=== PATIENT | male | born 1960 | race Caucasian/White ===

== ENCOUNTER 2018-11-11 08:34 | Day surgery (SDC) | payer BC ==
[~2018-11-11] VITALS: Ht 188 cm; Wt 109.0 kg
[~2018-11-11 08:34] MED LIST: AMLO10 PO; AMLO5 PO; ASPI81CH PO; ASPI81EC PO; CYCL10 PO; DILT120 PO; DOCU100 PO; HYDACE5325 PO; METO25ER PO; NEBI10 PO; NITR.4SL SL; ONDA4ODT SL; PANT40 PO; ROSU10TA PO; ROSU5 PO; SUCR1 PO; VERA120ERB PO; Zofran Odt4 MG SL
--- NOTE | 2018-11-11 10:36 | NUR ---
PT SITTING IN RECLINER WITH EYES CLOSED, BUT IS EASILY AWAKENED. RIGHT RADIAL TR BAND SITE SOFT WITH NO HEMATOMA AND NO PULSATILE BLEEDING. CALL LIGHT IN REACH. PT C/O HIS CHRONIC 2-3/10 CHEST PAIN AND SORENESS AT RIGHT TR BAND SITE. RIGHT WRIST BOARD IN PLACE.
--- NOTE | 2018-11-11 11:45 | NUR ---
PT EATING LUNCH.
--- NOTE | 2018-11-11 12:02 | NUR ---
DR. PELAYO HER TO DISCUSS RESULTS WITH PATIENT.
--- NOTE | 2018-11-11 12:13 | NUR ---
2 CC AIR REMOVED FROM TR BAND. NO BLEEDING AT SITE. ADDITIONAL 5 CC AIR REMOVED. NO BLEEDING.
--- NOTE | 2018-11-11 12:27 | NUR ---
REMAINDER OF AIR REMOVED. NO BLEEDING AT SITE. TR BAND TO ROOM AIR.
--- NOTE | 2018-11-11 13:13 | NUR ---
DISCHARGE INSTRUCTIONS REVIEWED ALL QUESTIONS ANSWERED. DEFLATED RIGHT TR BAND REMOVED AND POLYMEM PLACED OVER SITE WITH WRIST BOARD IN PLACE. RIGHT RADIAL SITE SOFT WITH NO HEMATOMA AND NO PULSATILE BLEEDING. 20 G IV REMOVED FROM LEFT HAND WITH INTACT CANNULA. PT DRESSED AND ESCORTED OUT VIA WHEELCHAIR ESCORT.
== END 2018-11-11 13:15 | disposition home or self-care (01) ==
LOC: MHTC 08:34
DX: I20.0 Unstable angina (principal); R94.39 Abnormal result of other cardiovascular function study; Z88.2 Allergy status to sulfonamides; Z79.899 Other long term (current) drug therapy
CPT/HCPCS: 93458; 99152; C1769; C1894; J1644; J2250; J3010; J7030; Q9967

== ENCOUNTER 2019-07-06 08:33 | Day surgery (SDC) | payer BC ==
[~2019-07-06] VITALS: Ht 188 cm; Wt 107.1 kg
[~2019-07-06 08:33] MED LIST changes: +RANO500T PO
[2019-07-06] MEDS ORDERED: DUTOPROL 25-121 EACH (09:12)
== END 2019-07-06 11:00 | disposition home or self-care (01) ==
LOC: ORSCSDS 08:33
PROVIDERS: Internal Medicine Gastroenterology
PROC: 0DBL8ZX Excision of Transverse Colon, Via Natural or Artificial Opening Endoscopic, Diagnostic (ICD-10-PCS; principal; 2019-07-06 09:45)
DX: Z86.010 Personal history of colon polyps (principal); D12.3 Benign neoplasm of transverse colon; K64.8 Other hemorrhoids; E78.5 Hyperlipidemia, unspecified; Z79.899 Other long term (current) drug therapy
CPT/HCPCS: 88305; J2704; J7120

== ENCOUNTER 2020-07-10 12:35 | Emergency (ER) | payer BC ==
[~2020-07-10] VITALS: Ht 188 cm; Wt 108.9 kg
[~2020-07-10 12:35] MED LIST changes: +DUTOPROL 25-121 EACH
[2020-07-10 13:35] LABS: BASOPHILS ABSOLUTE AUTO 0.03 K/mm3 (0.00-0.23); BASOPHILS PERCENT AUTO 0 % (0-2); EOSINOPHILS ABSOLUTE AUTO 0.39 K/mm3 (0.00-0.68); EOSINOPHILS PERCENT AUTO 5 % (0-6); Hematocrit 51.4 % (37.0-53.0); Hemoglobin 17.6 g/dL (13.5-17.5); IMMATURE GRAN ABSOLUTE AUTO 0.04 K/mm3 (0.00-0.10); IMMATURE GRAN PERCENT AUTO 1 % (0-1); LYMPHOCYTES ABSOLUTE AUTO 2.18 K/mm3 (0.84-5.20); LYMPHOCYTES PERCENT AUTO 29 % (21-46); MONOCYTES ABSOLUTE AUTO 0.84 K/mm3 (0.16-1.47); MONOCYTES PERCENT AUTO 11 % (4-13); Mean Corpuscular HGB 30.9 pg (26.0-34.0); Mean Corpuscular HGB Conc 34.2 g/dL (31.5-36.5); Mean Corpuscular Volume 90 fL (80-100); NEUTROPHILS PERCENT AUTO 54 % (41-73); Platelet Count 179 K/mm3 (150-400); RDW Coefficient Variation 12.2 % (11.7-14.2); RDW Standard Deviation 39.8 fL (35.1-46.3); Red Blood Cell Count 5.69 M/mm3 (4.30-5.90); White Blood Cell Count 7.48 K/mm3 (4.00-11.30)
[2020-07-10 13:37] LABS: Alanine Aminotransfer (ALT/SGP 28 U/L (12-78); Albumin, Blood 4.3 g/dL (3.4-5.0); Albumin/Globulin Ratio 1.4 (0.8-1.8); Alk Phos 90 U/L (50-136); Anion Gap 3 mmol/L (6-16); Aspartate Aminotrans (AST/SGOT 25 U/L (12-37); Bilirubin, Total 0.6 mg/dL (0.1-1.0); Blood Urea Nitrogen 13 mg/dL (8-24); Bun/Creatinine Ratio 12.3 (12.0-20.0); CO2, Blood 31 mmol/L (21-32); Calcium, Blood 9.3 mg/dL (8.5-10.1); Chloride, Blood 108 mmol/L (98-108); Creatinine, Blood 1.06 mg/dL (0.60-1.20); Glomerular Filtration Rate >60 (60-); Glucose, Blood 88 mg/dL (70-99); Potassium, Blood 3.7 mmol/L (3.5-5.5); Sodium, Blood 142 mmol/L (136-145); Total Protein, Blood 7.3 g/dL (6.4-8.2)
== END 2020-07-10 15:28 | disposition home or self-care (01) ==
LOC: ER 12:35
PROVIDERS: Emergency Medicine
DX: M79.605 Pain in left leg (principal); Z79.899 Other long term (current) drug therapy; Z79.82 Long term (current) use of aspirin
CPT/HCPCS: 36415; 80053; 85025; 93005; 93010; 93971; 99284-25

== ENCOUNTER 2020-10-14 22:59 | Observation (INO) | payer BC ==
[~2020-10-14] VITALS: Ht 188 cm; Wt 106.7 kg
[~2020-10-14 22:59] MED LIST changes: +Crestor40 MG PO; -ROSU5 PO
[2020-10-14 23:18] LABS: BASOPHILS ABSOLUTE AUTO 0.04 K/mm3 (0.00-0.23); BASOPHILS PERCENT AUTO 1 % (0-2); EOSINOPHILS ABSOLUTE AUTO 0.46 K/mm3 (0.00-0.68); EOSINOPHILS PERCENT AUTO 6 % (0-6); Hematocrit 50.8 % (37.0-53.0); Hemoglobin 17.3 g/dL (13.5-17.5); IMMATURE GRAN ABSOLUTE AUTO 0.05 K/mm3 (0.00-0.10); IMMATURE GRAN PERCENT AUTO 1 % (0-1); LYMPHOCYTES ABSOLUTE AUTO 2.77 K/mm3 (0.84-5.20); LYMPHOCYTES PERCENT AUTO 34 % (21-46); MONOCYTES ABSOLUTE AUTO 0.95 K/mm3 (0.16-1.47); MONOCYTES PERCENT AUTO 12 % (4-13); Mean Corpuscular HGB 30.6 pg (26.0-34.0); Mean Corpuscular HGB Conc 34.1 g/dL (31.5-36.5); Mean Corpuscular Volume 90 fL (80-100); Mean Platelet Volume 11.5 fL (9.1-12.4); NEUTROPHILS ABSOLUTE AUTO 3.89 K/mm3 (1.96-9.15); NEUTROPHILS PERCENT AUTO 48 % (41-73); Platelet Count 165 K/mm3 (150-400); RDW Coefficient Variation 12.1 % (11.7-14.2); RDW Standard Deviation 39.7 fL (35.1-46.3); Red Blood Cell Count 5.66 M/mm3 (4.30-5.90); White Blood Cell Count 8.16 K/mm3 (4.00-11.30)
[2020-10-14 23:44] LABS: Alanine Aminotransfer (ALT/SGP 36 U/L (12-78); Albumin, Blood 3.9 g/dL (3.4-5.0); Albumin/Globulin Ratio 1.3 (0.8-1.8); Alk Phos 103 U/L (50-136); Anion Gap 4 mmol/L (6-16); Aspartate Aminotrans (AST/SGOT 22 U/L (12-37); Bilirubin, Total 0.4 mg/dL (0.1-1.0); Blood Urea Nitrogen 19 mg/dL (8-24); Bun/Creatinine Ratio 15.3 (12.0-20.0); CO2, Blood 30 mmol/L (21-32); Calcium, Blood 8.9 mg/dL (8.5-10.1); Chloride, Blood 109 mmol/L (98-108); Creatinine, Blood 1.24 mg/dL (0.60-1.20); Free Thyroxine 1.01 ng/dL (0.70-1.60); Globulin, Blood 3.1 g/dL (2.2-4.0); Glomerular Filtration Rate >60 (60-); Glucose, Blood 105 mg/dL (70-99); Potassium, Blood 3.8 mmol/L (3.5-5.5); Sodium, Blood 143 mmol/L (136-145); Troponin I <0.015 ng/mL (0.000-0.040)
[2020-10-14] MEDS ORDERED: METO25ER PO (23:56)
--- NOTE | 2020-10-15 02:05 | NUR ---
ASSUMED CARE PT ARRIVED FROM ER VIA STRETCHER, STOOD AND TRANSFERED TO BED INDEPENDENTLY; DENIES CHEST PAIN CURRENTLY; VSS; NSR NOTED ON TELE W/ HR 60; O2 SATS >93 ON RA; PT INDEPENDENT FOR BRP; NO GAIT DISTURBANCES NOTED; REMINDED OF UNIT SAFETY / FPR PROTOCOL; CALL LIGHT IN REACH; BED IN LOWEST POSITION
--- NOTE | 2020-10-15 05:53 | NUR ---
SHIFT SUMMARY PT A&O X 4; PLEASANT & COMPLIANT W/ CARE; VSS; NSR / SINUS JESUS ON TELE W/ HR 52 - 60; CONSULT W/ CALLED IN TO ANSWERING SERVICE; O2 SATS >93 ON RA; PT STATES DOES NOT USE O2 OR CPAP AT BASELINE, HOWEVER NOTES HX OF CENTRAL APNEA; INDEPENDENT IN ROOM; NO ACUTE CHANGES; CALL LIGHT IN REACH; BED IN LOWEST POSITION; WILL CONTINUE TO MONITOR CLOSELY UNTIL HAND OFF TO DAY SHIFT RN.
[2020-10-15 07:23] LABS: BASOPHILS ABSOLUTE AUTO 0.03 K/mm3 (0.00-0.23); BASOPHILS PERCENT AUTO 0 % (0-2); EOSINOPHILS ABSOLUTE AUTO 0.44 K/mm3 (0.00-0.68); EOSINOPHILS PERCENT AUTO 6 % (0-6); Hematocrit 45.8 % (37.0-53.0); Hemoglobin 15.4 g/dL (13.5-17.5); IMMATURE GRAN ABSOLUTE AUTO 0.08 K/mm3 (0.00-0.10); IMMATURE GRAN PERCENT AUTO 1 % (0-1); LYMPHOCYTES ABSOLUTE AUTO 2.49 K/mm3 (0.84-5.20); LYMPHOCYTES PERCENT AUTO 35 % (21-46); MONOCYTES ABSOLUTE AUTO 0.75 K/mm3 (0.16-1.47); MONOCYTES PERCENT AUTO 11 % (4-13); Mean Corpuscular HGB 30.5 pg (26.0-34.0); Mean Corpuscular HGB Conc 33.6 g/dL (31.5-36.5); Mean Corpuscular Volume 91 fL (80-100); NEUTROPHILS ABSOLUTE AUTO 3.33 K/mm3 (1.96-9.15); NEUTROPHILS PERCENT AUTO 47 % (41-73); Platelet Count 142 K/mm3 (150-400); RDW Coefficient Variation 12.2 % (11.7-14.2); RDW Standard Deviation 40.3 fL (35.1-46.3); Red Blood Cell Count 5.05 M/mm3 (4.30-5.90); White Blood Cell Count 7.12 K/mm3 (4.00-11.30)
[2020-10-15 07:45] LABS: CPK Creatine Kinase 77 U/L (39-308)
[2020-10-15 07:54] LABS: Alanine Aminotransfer (ALT/SGP 28 U/L (12-78); Albumin, Blood 3.2 g/dL (3.4-5.0); Albumin/Globulin Ratio 1.2 (0.8-1.8); Alk Phos 75 U/L (50-136); Anion Gap 3 mmol/L (6-16); Aspartate Aminotrans (AST/SGOT 14 U/L (12-37); Bilirubin, Total 0.4 mg/dL (0.1-1.0); Blood Urea Nitrogen 18 mg/dL (8-24); Bun/Creatinine Ratio 16.4 (12.0-20.0); CO2, Blood 28 mmol/L (21-32); Calcium, Blood 8.3 mg/dL (8.5-10.1); Chloride, Blood 111 mmol/L (98-108); Globulin, Blood 2.6 g/dL (2.2-4.0); Glomerular Filtration Rate >60 (60-); Glucose, Blood 96 mg/dL (70-99); Potassium, Blood 4.1 mmol/L (3.5-5.5); Sodium, Blood 142 mmol/L (136-145); Total Protein, Blood 5.8 g/dL (6.4-8.2)
[2020-10-15] MEDS ORDERED: AMLO5 PO (11:44)
[2020-10-15] MEDS ORDERED: RANO500T PO (11:45)
[2020-10-15] MEDS ORDERED: METO25ER PO (11:45)
--- NOTE | 2020-10-15 13:20 | NUR ---
DISCHARGE PT D/C TO HOME WITH HIS . PT IS A&O X4, VSS, DENIES CP/PRESSURE AT THIS TIME. IV REMOVED WNL. F/U DCHAEDLED FOR 1 WEEK WITH . STEFFANIE FOR EVERYTHING ELSE. D/C INSTRUCTUINS PRAVIDED AND PT STATED UNDERDTANDING
--- NOTE | 2020-10-15 14:28 | NUR ---
Echocardiogram completed.
== END 2020-10-15 13:20 | disposition home or self-care (01) ==
LOC: ER 22:59 → PCU 23:00
PROVIDERS: Emergency Medicine; ADMIT Internal Medicine
DX: I47.1 Supraventricular tachycardia (principal); I49.1 Atrial premature depolarization; R07.89 Other chest pain; I25.111 Atherosclerotic heart disease of native coronary artery with angina pectoris with documented spasm; I25.2 Old myocardial infarction; I10 Essential (primary) hypertension; E78.5 Hyperlipidemia, unspecified; K21.9 Gastro-esophageal reflux disease without esophagitis; G47.33 Obstructive sleep apnea (adult) (pediatric); F90.9 Attention-deficit hyperactivity disorder, unspecified type; G25.81 Restless legs syndrome; E66.9 Obesity, unspecified; N28.9 Disorder of kidney and ureter, unspecified; Z87.891 Personal history of nicotine dependence; Z88.2 Allergy status to sulfonamides; Z86.718 Personal history of other venous thrombosis and embolism; Z68.31 Body mass index [BMI] 31.0-31.9, adult
CPT/HCPCS: 36415; 71045; 80053; 82550; 83735; 83880; 84439; 84443; 84481; 84484; 85025; 93005; 93010; 93306; 96374; 99285-25; A9270; G0378; J2405; J7030

== ENCOUNTER 2021-06-18 04:50 | Emergency (ER) | payer BC ==
[~2021-06-18] VITALS: Ht 188 cm; Wt 108.0 kg
[2021-06-18 05:29] LABS: BASOPHILS ABSOLUTE AUTO 0.06 K/mm3 (0.00-0.23); BASOPHILS PERCENT AUTO 1 % (0-2); EOSINOPHILS ABSOLUTE AUTO 0.27 K/mm3 (0.00-0.68); EOSINOPHILS PERCENT AUTO 2 % (0-6); Hematocrit 48.8 % (37.0-53.0); Hemoglobin 16.9 g/dL (13.5-17.5); IMMATURE GRAN ABSOLUTE AUTO 0.05 K/mm3 (0.00-0.10); IMMATURE GRAN PERCENT AUTO 0 % (0-1); LYMPHOCYTES ABSOLUTE AUTO 2.52 K/mm3 (0.84-5.20); LYMPHOCYTES PERCENT AUTO 21 % (21-46); MONOCYTES ABSOLUTE AUTO 0.94 K/mm3 (0.16-1.47); MONOCYTES PERCENT AUTO 8 % (4-13); Mean Corpuscular HGB Conc 34.6 g/dL (31.5-36.5); Mean Corpuscular Volume 90 fL (80-100); Mean Platelet Volume 11.7 fL (9.1-12.4); NEUTROPHILS ABSOLUTE AUTO 7.99 K/mm3 (1.96-9.15); NEUTROPHILS PERCENT AUTO 68 % (41-73); Platelet Count 198 K/mm3 (150-400); RDW Standard Deviation 38.9 fL (35.1-46.3); Red Blood Cell Count 5.45 M/mm3 (4.30-5.90); White Blood Cell Count 11.83 K/mm3 (4.00-11.30)
[2021-06-18 05:56] LABS: Alanine Aminotransfer (ALT/SGP 28 U/L (12-78); Albumin, Blood 3.6 g/dL (3.4-5.0); Albumin/Globulin Ratio 1.2 (0.8-1.8); Alk Phos 72 U/L (50-136); Anion Gap 6 mmol/L (6-16); Aspartate Aminotrans (AST/SGOT 23 U/L (12-37); Bilirubin, Total 0.6 mg/dL (0.1-1.0); Blood Urea Nitrogen 20 mg/dL (8-24); Bun/Creatinine Ratio 17.9 (12.0-20.0); CO2, Blood 26 mmol/L (21-32); Calcium, Blood 8.8 mg/dL (8.5-10.1); Chloride, Blood 108 mmol/L (98-108); Creatinine, Blood 1.12 mg/dL (0.60-1.20); Glomerular Filtration Rate >60 (60-); Glucose, Blood 141 mg/dL (70-99); Potassium, Blood 4.1 mmol/L (3.5-5.5); Sodium, Blood 140 mmol/L (136-145); Total Protein, Blood 6.6 g/dL (6.4-8.2); Troponin I <0.015 ng/mL (0.000-0.040)
== END 2021-06-18 11:20 | disposition home or self-care (01) ==
LOC: ER 04:50
PROVIDERS: Student in an Organized Health Care Education/Training Program
DX: R10.33 Periumbilical pain (principal); E78.5 Hyperlipidemia, unspecified; I10 Essential (primary) hypertension; K21.9 Gastro-esophageal reflux disease without esophagitis; Z88.2 Allergy status to sulfonamides; Z79.899 Other long term (current) drug therapy
CPT/HCPCS: 71260; 74177; 80053; 83036; 83605; 83690; 84484; 85025; 93005; 93010; 96374; 96375; 99284-25; J2405; J3010; Q9967

== ENCOUNTER 2021-09-28 15:05 | Inpatient (IN) | payer OTHER, BC ==
[~2021-09-28] VITALS: Ht 188 cm; Wt 110.5 kg
[~2021-09-28 15:05] MED LIST changes: +Amiodarone HCl200 MG PO; +ELIQUIS5 M2 PO; +HYDMOR2 PO; +MIRALAX17 GM PO; +SENN187 PO
[2021-09-28 15:58] LABS: BASOPHILS ABSOLUTE AUTO 0.04 K/mm3 (0.00-0.23); BASOPHILS PERCENT AUTO 1 % (0-2); EOSINOPHILS PERCENT AUTO 4 % (0-6); Hemoglobin 18.8 g/dL (13.5-17.5); IMMATURE GRAN ABSOLUTE AUTO 0.03 K/mm3 (0.00-0.10); IMMATURE GRAN PERCENT AUTO 0 % (0-1); LYMPHOCYTES ABSOLUTE AUTO 2.35 K/mm3 (0.84-5.20); LYMPHOCYTES PERCENT AUTO 32 % (21-46); MONOCYTES ABSOLUTE AUTO 0.71 K/mm3 (0.16-1.47); MONOCYTES PERCENT AUTO 10 % (4-13); Mean Corpuscular HGB 30.3 pg (26.0-34.0); Mean Corpuscular HGB Conc 33.8 g/dL (31.5-36.5); Mean Corpuscular Volume 90 fL (80-100); Mean Platelet Volume 11.5 fL (9.1-12.4); NEUTROPHILS ABSOLUTE AUTO 4.02 K/mm3 (1.96-9.15); NEUTROPHILS PERCENT AUTO 54 % (41-73); Platelet Count 187 K/mm3 (150-400); RDW Coefficient Variation 12.5 % (11.7-14.2); RDW Standard Deviation 41.1 fL (35.1-46.3); Red Blood Cell Count 6.21 M/mm3 (4.30-5.90); White Blood Cell Count 7.45 K/mm3 (4.00-11.30)
[2021-09-28 16:00] LABS: Hematocrit 55.7 % (37.0-53.0)
[2021-09-28 16:19] LABS: Alanine Aminotransfer (ALT/SGP 38 U/L (12-78); Albumin, Blood 4.3 g/dL (3.4-5.0); Albumin/Globulin Ratio 1.5 (0.8-1.8); Alk Phos 90 U/L (50-136); Anion Gap 6 mmol/L (6-16); Aspartate Aminotrans (AST/SGOT 24 U/L (12-37); Bilirubin, Total 0.8 mg/dL (0.1-1.0); Blood Urea Nitrogen 14 mg/dL (8-24); Bun/Creatinine Ratio 12.7 (12.0-20.0); CO2, Blood 28 mmol/L (21-32); Calcium, Blood 9.1 mg/dL (8.5-10.1); Chloride, Blood 108 mmol/L (98-108); Globulin, Blood 2.8 g/dL (2.2-4.0); Glomerular Filtration Rate >60 (60-); Glucose, Blood 116 mg/dL (70-99); Potassium, Blood 3.8 mmol/L (3.5-5.5); Sodium, Blood 142 mmol/L (136-145); Total Protein, Blood 7.1 g/dL (6.4-8.2)
[2021-09-29 04:05] LABS: BASOPHILS ABSOLUTE AUTO 0.04 K/mm3 (0.00-0.23); BASOPHILS PERCENT AUTO 1 % (0-2); EOSINOPHILS ABSOLUTE AUTO 0.37 K/mm3 (0.00-0.68); EOSINOPHILS PERCENT AUTO 5 % (0-6); Hematocrit 52.6 % (37.0-53.0); Hemoglobin 17.7 g/dL (13.5-17.5); IMMATURE GRAN ABSOLUTE AUTO 0.04 K/mm3 (0.00-0.10); IMMATURE GRAN PERCENT AUTO 1 % (0-1); LYMPHOCYTES ABSOLUTE AUTO 2.09 K/mm3 (0.84-5.20); LYMPHOCYTES PERCENT AUTO 26 % (21-46); MONOCYTES ABSOLUTE AUTO 0.82 K/mm3 (0.16-1.47); MONOCYTES PERCENT AUTO 10 % (4-13); Mean Corpuscular HGB 30.6 pg (26.0-34.0); Mean Corpuscular HGB Conc 33.7 g/dL (31.5-36.5); Mean Corpuscular Volume 91 fL (80-100); Mean Platelet Volume 11.5 fL (9.1-12.4); NEUTROPHILS ABSOLUTE AUTO 4.83 K/mm3 (1.96-9.15); NEUTROPHILS PERCENT AUTO 59 % (41-73); Platelet Count 183 K/mm3 (150-400); RDW Coefficient Variation 12.5 % (11.7-14.2); RDW Standard Deviation 41.6 fL (35.1-46.3); Red Blood Cell Count 5.79 M/mm3 (4.30-5.90); White Blood Cell Count 8.19 K/mm3 (4.00-11.30)
[2021-09-29 04:22] LABS: Alanine Aminotransfer (ALT/SGP 42 U/L (12-78); Albumin, Blood 3.6 g/dL (3.4-5.0); Albumin/Globulin Ratio 1.3 (0.8-1.8); Alk Phos 81 U/L (50-136); Anion Gap 4 mmol/L (6-16); Aspartate Aminotrans (AST/SGOT 30 U/L (12-37); Bilirubin, Total 0.9 mg/dL (0.1-1.0); Blood Urea Nitrogen 13 mg/dL (8-24); CO2, Blood 29 mmol/L (21-32); Calcium, Blood 8.9 mg/dL (8.5-10.1); Chloride, Blood 109 mmol/L (98-108); Creatinine, Blood 1.08 mg/dL (0.60-1.20); Globulin, Blood 2.8 g/dL (2.2-4.0); Glomerular Filtration Rate >60 (60-); Glucose, Blood 106 mg/dL (70-99); Potassium, Blood 4.4 mmol/L (3.5-5.5); Sodium, Blood 142 mmol/L (136-145); Total Protein, Blood 6.4 g/dL (6.4-8.2)
--- NOTE | 2021-09-29 06:11 | NUR ---
PT ARRIVED PCU AT 22;30 ON STRETCHER. AWAKE, ALERT AND ORIENTED X4 ABLE TO AMBULATE INTO BED, ASSESSMENT COMPLETED. PT REPORT CHEST PAIN 3\\10, MEDICATION ADMINISTERED PER EMAR, WILL CONTINUE TO MONITOR. PT HEART RATE SHOOT UP TO 150"S WHEN OUT OF BED TO UDE THE URINAL. DICUSSED PLAN OF CARE WITH PATEINT , VERBALIZED UNDERSTANDING. PENDING CARDIOLOGY CONSULT. CALL LIGHT WITHIN REACH AND SIDE RAIL UP X2
--- NOTE | 2021-09-29 07:28 | NUR ---
ASSUMPTION OF CARE Pt is resting in bed. He does awake but is drowsy. His heart rate does tachy up with any movement but then goes back down into the 90's and is remains in A-Fib. The pt reports that he can feel when his heart rate increases but that this happens all the time. He has the urinal and personal belongings at the bedside. Awaiting cardiology rounds for plan for the day.
--- NOTE | 2021-09-29 10:48 | NUR ---
Pateint is lying in bed and alert. Patient talks about his career, his family, his spiritual beliefs and his frustrations of the reoccuring medical problems. I provide therapeutic listening and prayer. Patient responds well and shows signs of an elevated mood.
--- NOTE | 2021-09-29 13:43 | NUR ---
UPDATE Dr Weiss rounded on the pt at lunch today and gave orders to start the pt on an amio gtt. Pharmacy was consulted. IV access was established and the gtt was started as ordered. Within seconds of the infusion starting the pt reported pain in his abdomen, the infusion was stopped. The Pt then reported that he felt hot and his face was red. The charge nurse was called and then he reported that his throat felt tight. Rapid response was initiated and the ICU charge nurse was updated as well as Dr Goodwin. Meds were given per EMAR. Pt continued to c/o pain in his back a developed a red rash to his shoulders and chest. Pt was transferred to ICU and report was given to the receiving HAND WINDER.
[2021-09-29 14:25] LABS: Bun/Creatinine Ratio 11.2 (12.0-20.0); Calcium, Blood 9.1 mg/dL (8.5-10.1); Creatinine, Blood 1.25 mg/dL (0.60-1.20); Potassium, Blood 3.1 mmol/L (3.5-5.5)
--- NOTE | 2021-09-29 14:57 | NUR ---
TRANSFER PATIENT ARRIVED TO UNIT AROUND 1320 TRANSFERR FROM PCU. PATIENT ANXIOUS, HOLDING LEFT SIDE OF CHEST AND STATING PAIN 10/10. DR. ALN TO BEDSIDE, MEDICATING ORDERED FOR HEART RATE, PAIN, AND MEDICATION REACTION. PATIENT TAKEN TO CT VIA BED, TOLERATED WELL. WILL REVIEW ORDERS AND TREAT PRESCRIBED.
--- NOTE | 2021-09-29 16:00 | NUR ---
REASSESSMENT PATIENT IN BED TALKING ON PHONE, CPAP WAS PLACED BY RT FOR LOW 02 SATS WHILE ASLEEP. RASH RESOLVED. PATIENT STATES NO PAIN AT THIS TIME. REPORTED POTASSIUM TO DR. LAN, RECEIVED ORDERS TO REPLACE. WILL CONTINUE TO MONITOR, CALL LIGHT IN REACH. NO OTHER ACUTE CHANGES TO PREVIOUS ASSESSMENT.
--- NOTE | 2021-09-29 17:56 | NUR ---
SHIFT SUMMARY PATIENT ARRIVED TRANSFER FROM PCU AFTER RAPID RESPONSE CALLED. PATIENT IN AFIB RVR RATE OF 150'S WITH INTENSE 10/10 CHEST PAIN. MEDICATED CHARTED. RATE RESPONDED TO DILTIAZEM AND PAIN RESPONDED TO DILAUDED. AFTER SEVERAL DOSES OF BENADRYL ALONG WITH EPI AND SOLUMEDROL, RED RASH SEEN ACROSS BACK AND CHEST RESOLVED THAT WAS ACUTE AFTER AMIO IV WAS GIVEN. CTA OF THE CHEST WAS PERFORMED DUE TO PAIN. ONCE PATIENT WAS COMFORTABLE AND BEGAN RESTING, 02 SATS DECREASED TO 80'S REQUIRING CPAP WITH 5L 02 BLEED IN. POTASSIUM BEING REPLACED IV, BURNING SENSATION REPORTED BY PATIENT IN RUE WHERE POTASSIUM INFUSING, DECREASED RATE. CURRENTLY REPORTS RELIEF. GI COCKTAIL WAS PROVIDED FOR RETURNING CP WITH RELIEF OF PAIN. REPORTED THIS TO THE PHYSICIAN. WILL CONTINUE TO MONITOR AND REPORT TO ONCOMING RN.
--- NOTE | 2021-09-29 19:44 | NUR ---
RHYTHM CHANGE PT CONVERTED BACK TO NSR WITH HR 70-80'S. EKG OBTAINED TO CONFIRM. DR. RINCON CALLED AND NOTIFIED, WELL VERIFIED THAT HE WANTED TO CONTINUE WITH BETAPACE MEDICATION AND DOSE. ORDERS RECEIVED TO ADMINISTER TO PREVENT PT FROM GOING BACK INTO AFIB WITH RVR.
--- NOTE | 2021-09-29 20:00 | NUR ---
ASSUMED PT CARE AT 1915 FROM [facility] PT ALERT AND ORIENTED; ABLE TO MAKE NEEDS KNOWN. PT NOTED TO BE AFIB/FLUTTER WITH RATE 100-120'S. CARDIZEM GTT AT 15MG/HR. POTASSIUM REPLACEMENT ALSO INFUSING WITH GOAL OF 60MEQ'S TOTAL. DR. RINCON AT BEDSIDE AT CHANGE OF SHIFT WITH NEW ORDERS FOR BETAPACE. PT CONVERTED TO NSR AROUND 1919 WITH RATE 70-80'S. BILATERAL UPPER ARM POWERGLIDES. PT DENIES ANY CHEST PAIN; HOWEVER, AFTER SWALLOWING HS MEDS HE DID COMPLAIN OF CHEST TIGHTNESS AT THAT TIME. ADMINISTERED GI COCKTAIL; WILL REASSESS EFFECTIVENESS. PT UP IN ROOM AMBULATING SHORT DISTANCES; ABLE TO VOID STANDING WITH URINAL. CPAP AT NIGHT WITH 5L OF OXYGEN BLEED IN. OCCASIONAL 3L OF OXYGEN VIA NC WHEN PT DOESN'T TOLERATE CPAP. CALL LIGHT WITHIN REACH
--- NOTE | 2021-09-30 06:13 | NUR ---
END OF SHIFT SUMMARY NO SIGNIFICANT CHANGES NOTED T/O SHIFT. PT SLEPT OFF AND ON T/O THE NIGHT. REMAINS IN NSR WITH HR 70-80'S. BP'S STABLE, SEE FLOWSHEET. PT STATED HE DIDN'T FEEL ANXIOUS WHEN WAKING UP AND FELT RESTED. PT IS SALINE LOCKED AT THIS TIME; CARDIZEM GTT TURNED OFF AT 2140. POWERGLIDE TO LEFT UPPER ARM NOT PATENT; ASKED ABOUT REDRESSING TO ADJUST AND FLUSH LINE; HOWEVER, PT DECLINED AND STATED HE WAS HOPING TO GET THEM BOTH D/C'D SO HE CAN GO HOME TODAY. RAISED CONCERN THAT PT JUST STARTED ON BETAPACE AND REQUIRED SERIAL EKG'S TO MONITOR FOR QTC PROLONGATION; HOWEVER, PT STATED HE HAS A ZOLL AND 6 LEAD MONITOR AT HOME AND HE CAN MONITOR IT HIMSELF. PT VERY CALM AND COOPERATIVE WITH CARES. WILL CONTINUE TO MONITOR UNTIL REPORT IS HANDED OFF TO ONCOMING RN.
[2021-09-30 06:22] LABS: Anion Gap 5 mmol/L (6-16); Blood Urea Nitrogen 20 mg/dL (8-24); Bun/Creatinine Ratio 17.1 (12.0-20.0); CO2, Blood 26 mmol/L (21-32); Calcium, Blood 8.8 mg/dL (8.5-10.1); Chloride, Blood 108 mmol/L (98-108); Creatinine, Blood 1.17 mg/dL (0.60-1.20); Glomerular Filtration Rate >60 (60-); Glucose, Blood 182 mg/dL (70-99); Magnesium, Blood 2.3 mg/dL (1.6-2.4); Potassium, Blood 4.5 mmol/L (3.5-5.5); Sodium, Blood 139 mmol/L (136-145)
--- NOTE | 2021-09-30 07:30 | NUR ---
ASSUMPTION OF CARE RECEIVED REPORT FROM CHIP MCCLELLAND, ASSUMED CARE OF PATIENT. PATIENT ON LEFT SIDE, EYES CLOSED, RESP E/U. NO S/S OF DISTRESS. HEART RATE 70'S IN SINUS RHYTHM,, STABLE B/P. ROOM AIR WITH O2 SATS OF 94-95%. BILATERAL POWERGLIDES SALINE LOCKED. WILL REVIEW ORDERS AND TREAT PRESCRIBED.
[2021-09-30 18:13] LABS: Anion Gap 2 mmol/L (6-16); Blood Urea Nitrogen 17 mg/dL (8-24); Bun/Creatinine Ratio 15.5 (12.0-20.0); CO2, Blood 29 mmol/L (21-32); Calcium, Blood 8.9 mg/dL (8.5-10.1); Chloride, Blood 109 mmol/L (98-108); Glomerular Filtration Rate >60 (60-); Glucose, Blood 147 mg/dL (70-99); Potassium, Blood 4.9 mmol/L (3.5-5.5); Sodium, Blood 140 mmol/L (136-145)
--- NOTE | 2021-09-30 18:22 | NUR ---
SHIFT SUMMARY PATIENT IN SINUS RHYTHM THROUGH SHIFT. AT AROUND 1700 PATIENT CALLED STATING HE COULD FEEL FLUTTERING, MULTIPLE PVS NOTED. REMAINED IN SINUS RHTYHM RATE 60-70'S. B/P STABLE. PATIENT REPORTED SOB, 02 SATS 96-100% ON RA. REPORTED ECTOPY TO [facility]. REVIEWED WITH POTASSIUM NOTED TO BE WITHIN NORMAL LIMITS. PATIENT AMBULATED HALLS INDEPENDENTLY WITH STEADY GAIT, TOLERATED SHOWERING AND MOVING AROUND ROOM. CONTINUES TO DENY CHEST PAIN BUT STATED DISCOMFORTS WITH THE ECTOPY. CURRENTLY IN BED WITH EYES CLOSED, NO S/S OF DISTRESS. CONTINUING TO MONITOR AND WILL REPORT TO ONCOMING RN.
--- NOTE | 2021-09-30 21:31 | NUR ---
ASSUMED CARE PT IS ALERT AND ORIENTED X4, PLEASANT AND COOPERATIVE. PT IS AMBULATORY. ON ROOM AIR, SPO2 IS >96%, LUNGS CLEAR. CPAP AVAILABLE IF NEEDED. HR IS CURRENTLY IN A SINUS RHYTHM WITH PVC'S. BP IS STABLE. BOWEL TONES ARE ACTIVE. USING URINAL AT BEDSIDE. PT REQUESTED A ONE TIME DOSE FOR PROTONIX 40MG HE IS STARTING TO GET HEARTBURN. ALSO REQUESTED TYLENOL FOR A HEADACHE. CALL TO WINNIE, HOSPITALIST, AND ORDERS GIVEN FOR ONE TIME DOSE OF PROTONIX AND TYLENOL 650MG Q6H PRN. ORDERS REVIEWED, WILL TREAT PRESCRIBED.
--- NOTE | 2021-10-01 06:17 | NUR ---
PT WAS ABLE TO FALL ASLEEP AROUND MIDNIGHT AND HAS BEEN SLEEPING WELL SINCE. NO ACUTE CHANGES THIS SHIFT. HR IS SINUS JESUS TO SINUS RHYTHM WITH PVC'S, RATE IN 50-70'S. ALL OTHER VITALS STABLE. PT AMBULATES INDEPENDENTLY IN ROOM AND UNIT WELL. REPEAT EKG TO BE OBTAINED THIS AM FOR SOTALOL TREATMENT. WILL REPORT TO ONCOMING SHIFT WHEN AVAILABLE.
--- NOTE | 2021-10-01 07:08 | NUR ---
ASSUMPTION OF CARE RECEIVED REPORT FROM NELL MCCLELLAND, ASSUMED CARE OF PATIENT. PATIENT IN BED ON RIGHT SIDE WITH EYES CLOSED, EASILY AWOKE. DENIED DISCOMFORTS AT THIS TIME. VITALS CURRENTLY STABLE ON ROOM AIR. WILL REVIEW ORDERS AND TREAT PRESCRIBED.
[2021-10-01] MEDS ORDERED: SOTALOL PO (10:40)
--- NOTE | 2021-10-01 11:04 | NUR ---
DISCHARGE PATIENT DISCHARGED HOME, AMBULATED INDEPENDENTLY TO CAR WITH STEADY GAIT. POWER GLIDE TO RUE REMOVED WITH CATHETER INTACT. DISCHARGE PAPER WORK AND EDUCATION GIVEN TO PATIENT. SOTALOL CALLED INTO [facility].
== END 2021-10-01 11:15 | disposition home or self-care (01) | DRG 309 ==
LOC: ER 15:05 → PCU 15:06 → ICUE 09-29 13:37
PROVIDERS: Internal Medicine; Physician Assistant; ADMIT Internal Medicine
DX: I48.20 Chronic atrial fibrillation, unspecified (principal); I50.32 Chronic diastolic (congestive) heart failure; D75.1 Secondary polycythemia; I11.0 Hypertensive heart disease with heart failure; G47.33 Obstructive sleep apnea (adult) (pediatric); G47.31 Primary central sleep apnea; K21.9 Gastro-esophageal reflux disease without esophagitis; F41.9 Anxiety disorder, unspecified; F90.9 Attention-deficit hyperactivity disorder, unspecified type; G25.81 Restless legs syndrome; K59.09 Other constipation; I47.1 Supraventricular tachycardia; L27.0 Generalized skin eruption due to drugs and medicaments taken internally; T46.2X5A Adverse effect of other antidysrhythmic drugs, initial encounter; Y92.239 Unspecified place in hospital as the place of occurrence of the external cause; I25.10 Atherosclerotic heart disease of native coronary artery without angina pectoris; I25.2 Old myocardial infarction; Z87.891 Personal history of nicotine dependence; Z79.01 Long term (current) use of anticoagulants; Z79.899 Other long term (current) drug therapy; Z88.2 Allergy status to sulfonamides; Z88.8 Allergy status to other drugs, medicaments and biological substances
CPT/HCPCS: 36415; 71275; 80048; 80053; 83735; 83880; 84443; 84484; 85025; 93005; 93010; 94660; 96365; 96366; 96375; 96376; 99285-25; A9270; C1751; G0378; J0171; J0282; J1170; J1200; J2270; J2930; J3480; J7030; J7120; Q9967

== ENCOUNTER 2021-12-04 17:34 | Emergency (ER) | payer BC ==
[~2021-12-04] VITALS: Ht 188 cm; Wt 114.8 kg
[~2021-12-04 17:34] MED LIST changes: +SOTALOL PO
[2021-12-04 18:07] LABS: BASOPHILS ABSOLUTE AUTO 0.05 K/mm3 (0.00-0.23); BASOPHILS PERCENT AUTO 1 % (0-2); EOSINOPHILS ABSOLUTE AUTO 0.27 K/mm3 (0.00-0.68); EOSINOPHILS PERCENT AUTO 3 % (0-6); Hematocrit 54.6 % (37.0-53.0); Hemoglobin 19.2 g/dL (13.5-17.5); IMMATURE GRAN ABSOLUTE AUTO 0.03 K/mm3 (0.00-0.10); IMMATURE GRAN PERCENT AUTO 0 % (0-1); LYMPHOCYTES ABSOLUTE AUTO 2.17 K/mm3 (0.84-5.20); LYMPHOCYTES PERCENT AUTO 26 % (21-46); MONOCYTES ABSOLUTE AUTO 1.13 K/mm3 (0.16-1.47); MONOCYTES PERCENT AUTO 14 % (4-13); Mean Corpuscular HGB Conc 35.2 g/dL (31.5-36.5); Mean Corpuscular Volume 88 fL (80-100); Mean Platelet Volume 11.3 fL (9.1-12.4); NEUTROPHILS PERCENT AUTO 56 % (41-73); Platelet Count 200 K/mm3 (150-400); RDW Coefficient Variation 11.9 % (11.7-14.2); RDW Standard Deviation 38.4 fL (35.1-46.3); White Blood Cell Count 8.25 K/mm3 (4.00-11.30)
[2021-12-04 18:28] LABS: Albumin, Blood 4.1 g/dL (3.4-5.0); Albumin/Globulin Ratio 1.2 (0.8-1.8); Bilirubin, Total 0.9 mg/dL (0.1-1.0); Bun/Creatinine Ratio 17.7 (12.0-20.0); Calcium, Blood 9.7 mg/dL (8.5-10.1); Creatinine, Blood 1.41 mg/dL (0.60-1.20); Globulin, Blood 3.4 g/dL (2.2-4.0); Potassium, Blood 3.8 mmol/L (3.5-5.5); Total Protein, Blood 7.5 g/dL (6.4-8.2)
[2021-12-04] MEDS ORDERED: ACETAMINOPHEN500 MG PO (18:42)
[2021-12-04] MEDS ORDERED: AMIODARONE HCL100 M5 PO (19:00)
[2021-12-04 19:35] LABS: Influenza A, PCR NEGATIVE (NEGATIVE); Influenza B, PCR NEGATIVE (NEGATIVE); Resp Syncytial Virus, PCR NEGATIVE (NEGATIVE); SARS-Cov-2 (COVID-19) PCR, MMC NEGATIVE (NEGATIVE)
[2021-12-06] MEDS ORDERED: METO25ER PO (11:50)
== END 2021-12-04 21:19 | disposition home or self-care (01) ==
LOC: ER 17:34
PROVIDERS: Physician Assistant
DX: R07.9 Chest pain, unspecified (principal); I48.91 Unspecified atrial fibrillation; K21.9 Gastro-esophageal reflux disease without esophagitis; I12.0 Hypertensive chronic kidney disease with stage 5 chronic kidney disease or end stage renal disease; N18.6 End stage renal disease; S46.219A Strain of muscle, fascia and tendon of other parts of biceps, unspecified arm, initial encounter; Z99.2 Dependence on renal dialysis; Z20.822 Contact with and (suspected) exposure to COVID-19; Z88.8 Allergy status to other drugs, medicaments and biological substances; Z88.2 Allergy status to sulfonamides
CPT/HCPCS: 0241U; 36415; 71046; 80053; 83690; 83880; 84484; 85025; 93005; 93010; 96365; 96375; 99284-25; J3475; J7030

== ENCOUNTER 2022-03-30 11:56 | Emergency (ER) | payer OTHER, BC ==
[~2022-03-30] VITALS: Ht 188 cm; Wt 113.4 kg
[~2022-03-30 11:56] MED LIST changes: +ACETAMINOPHEN500 MG PO; +AMIODARONE HCL100 M5 PO
[2022-03-30] MEDS ORDERED: METO25ER PO (12:13)
== END 2022-03-30 13:29 | disposition home or self-care (01) ==
LOC: ER 11:56
DX: M23.91 Unspecified internal derangement of right knee (principal); I10 Essential (primary) hypertension; Z88.2 Allergy status to sulfonamides; Z88.8 Allergy status to other drugs, medicaments and biological substances; Z79.899 Other long term (current) drug therapy; Z79.01 Long term (current) use of anticoagulants
CPT/HCPCS: 73562-RT; 99283-25

== ENCOUNTER 2022-08-08 23:53 | Emergency (ER) | payer BC ==
[~2022-08-08] VITALS: Ht 188 cm; Wt 108.9 kg
[2022-08-09 00:27] LABS: BASOPHILS ABSOLUTE AUTO 0.03 K/mm3 (0.00-0.23); BASOPHILS PERCENT AUTO 0 % (0-2); EOSINOPHILS ABSOLUTE AUTO 0.32 K/mm3 (0.00-0.68); EOSINOPHILS PERCENT AUTO 4 % (0-6); Hematocrit 48.3 % (37.0-53.0); Hemoglobin 16.8 g/dL (13.5-17.5); IMMATURE GRAN ABSOLUTE AUTO 0.05 K/mm3 (0.00-0.10); IMMATURE GRAN PERCENT AUTO 1 % (0-1); LYMPHOCYTES ABSOLUTE AUTO 2.48 K/mm3 (0.84-5.20); LYMPHOCYTES PERCENT AUTO 29 % (21-46); MONOCYTES ABSOLUTE AUTO 1.07 K/mm3 (0.16-1.47); MONOCYTES PERCENT AUTO 13 % (4-13); Mean Corpuscular HGB 31.3 pg (26.0-34.0); Mean Corpuscular HGB Conc 34.8 g/dL (31.5-36.5); Mean Corpuscular Volume 90 fL (80-100); Mean Platelet Volume 11.5 fL (9.1-12.4); NEUTROPHILS ABSOLUTE AUTO 4.57 K/mm3 (1.96-9.15); NEUTROPHILS PERCENT AUTO 54 % (41-73); Platelet Count 181 K/mm3 (150-400); RDW Coefficient Variation 12.1 % (11.7-14.2); RDW Standard Deviation 39.6 fL (35.1-46.3); Red Blood Cell Count 5.37 M/mm3 (4.30-5.90); White Blood Cell Count 8.52 K/mm3 (4.00-11.30)
[2022-08-09 00:35] LABS: Bun/Creatinine Ratio 20.2 (12.0-20.0); Calcium, Blood 9.4 mg/dL (8.5-10.1); Creatinine, Blood 1.09 mg/dL (0.60-1.20)
[2022-08-09 14:35] LABS: Calcium, Ionized (POC) 1.21 mmol/L (1.10-1.46); Chloride (POC) 104 mmol/L (98-108); Creatinine (POC) 1.1 mg/dL (0.8-1.3); Glucose (ISTAT POC) 90 mg/dL (70-99); Potassium (POC) 3.8 mmol/L (3.5-5.5); Sodium (POC) 141 mmol/L (135-148); Total CO2 (POC) 29 mmol/L (21-32)
== END 2022-08-09 04:17 | disposition home or self-care (01) ==
LOC: ER 23:53
PROVIDERS: Student in an Organized Health Care Education/Training Program
DX: I20.9 Angina pectoris, unspecified (principal); I10 Essential (primary) hypertension; I48.91 Unspecified atrial fibrillation; K21.9 Gastro-esophageal reflux disease without esophagitis; E78.5 Hyperlipidemia, unspecified; G47.33 Obstructive sleep apnea (adult) (pediatric); Z88.2 Allergy status to sulfonamides; Z88.8 Allergy status to other drugs, medicaments and biological substances; Z79.899 Other long term (current) drug therapy; Z79.01 Long term (current) use of anticoagulants
CPT/HCPCS: 71045; 80047; 80048; 84484; 85014; 85025; 93005; 93010; A9270; J2405

== ENCOUNTER 2023-06-07 11:17 | Day surgery (SDC) | payer BC ==
[2023-06-07] VITALS (8 sets, daily range): BP systolic 120–159; BP diastolic 76–97
[~2023-06-07] VITALS: Ht 188 cm; Wt 110.0 kg
[~2023-06-07 11:17] MED LIST changes: -NEBI5 PO
[2023-06-07] MEDS ORDERED: NEBI5 PO (11:44)
--- NOTE | 2023-06-07 12:37 | NUR ---
ASSUMED CARE OF PT. REPORT FROM [facility] BLANK.
--- NOTE | 2023-06-07 13:56 | NUR ---
assumed care fo pt. report from nicki hammond. pt a&ox4.
--- NOTE | 2023-06-07 14:59 | NUR ---
2CC REMOVED FROM TR BAND. NO BLEEDING NOTED. SITE SOFT AND NON-TENDER PER PT.
--- NOTE | 2023-06-07 15:17 | NUR ---
2CC REMOVED FROM TR BAND. SITE SOFT AND NON-TENDER. NO BLEEDING NOTED.
--- NOTE | 2023-06-07 15:56 | NUR ---
PT GIVEN DC INSTRUCTIONS AND VERBALIZED UNDERSTANDING. IV OUT. CLOTH DOT, SLING, AND ARM BOARD APPLIED. RADIAL SITE SOFT AND NON-TENDER PER. NO BLEEDING NOTED. PT CHANGED. PTs TO TAKE PT HOME.
== END 2023-06-07 16:04 | disposition home or self-care (01) ==
LOC: MHTC 11:17
DX: R07.89 Other chest pain (principal); I47.29 Other ventricular tachycardia; I10 Essential (primary) hypertension; E78.5 Hyperlipidemia, unspecified; Z88.2 Allergy status to sulfonamides; Z72.0 Tobacco use
CPT/HCPCS: 76937; 93454; 99152; 99153; A9270; C1769; C1894; J0461; J1644; J2250; J3010; J7030; J7050; Q9967

== ENCOUNTER → 2023-06-07 | Outpatient (CLI) | payer BC ==
[~2023-06-07] MED LIST changes: +NEBI5 PO
[2023-06-07 11:28] LABS: International Normalized Ratio 0.98; Prothrombin Time Results 10.3 Sec (9.7-11.5)
== END ==
LOC: LAB 11:06 → LAB SHORT 11:06
PROVIDERS: Internal Medicine Cardiovascular Disease
DX: I10 Essential (primary) hypertension (principal); E78.5 Hyperlipidemia, unspecified; I47.10 Supraventricular tachycardia, unspecified; I48.0 Paroxysmal atrial fibrillation; R07.9 Chest pain, unspecified
CPT/HCPCS: 36415; 85610

== ENCOUNTER 2024-03-07 20:11 | Emergency (ER) | payer BC ==
[~2024-03-07] VITALS: Ht 188 cm; Wt 66.2 kg
[~2024-03-07 20:11] MED LIST changes: +NEBI5 PO
[2024-03-07] MEDS ORDERED: NS 1,000 ML IV SCH (20:20)
[2024-03-07 20:41] LABS: Base Excess Venous 2.1 mmol/L; Bicarbonate Venous 27.4 mmol/L (24.0-30.0); PCO2 Venous 26.9 mmHg (38-42); pH Blood Venous 7.56 (7.34-7.37)
[2024-03-07] MEDS ORDERED: FentaNYL Citrate 50 MCG/ML 2 ML Injection IV ONE (20:45)
[2024-03-07] MEDS ORDERED: Pantoprazole Sodium 40 MG Injection IV ONE (20:45)
[2024-03-07 21:00] LABS: BASOPHILS ABSOLUTE AUTO 0.01 K/mm3 (0.00-0.23); BASOPHILS PERCENT AUTO 0 % (0-2); EOSINOPHILS ABSOLUTE AUTO 0.08 K/mm3 (0.00-0.68); EOSINOPHILS PERCENT AUTO 1 % (0-6); Hematocrit 45.1 % (37.0-53.0); Hemoglobin 15.9 g/dL (13.5-17.5); IMMATURE GRAN ABSOLUTE AUTO 0.01 K/mm3 (0.00-0.10); IMMATURE GRAN PERCENT AUTO 0 % (0-1); LYMPHOCYTES ABSOLUTE AUTO 0.87 K/mm3 (0.84-5.20); LYMPHOCYTES PERCENT AUTO 13 % (21-46); MONOCYTES ABSOLUTE AUTO 0.85 K/mm3 (0.16-1.47); MONOCYTES PERCENT AUTO 13 % (4-13); Mean Corpuscular HGB 30.9 pg (26.0-34.0); Mean Corpuscular HGB Conc 35.3 g/dL (31.5-36.5); Mean Corpuscular Volume 88 fL (80-100); Mean Platelet Volume 11.6 fL (9.1-12.4); NEUTROPHILS ABSOLUTE AUTO 4.69 K/mm3 (1.96-9.15); NEUTROPHILS PERCENT AUTO 72 % (41-73); Platelet Count 136 K/mm3 (150-400); RDW Coefficient Variation 11.9 % (11.7-14.2); RDW Standard Deviation 38.5 fL (35.1-46.3); Red Blood Cell Count 5.15 M/mm3 (4.30-5.90); White Blood Cell Count 6.51 K/mm3 (4.00-11.30)
[2024-03-07 21:16] LABS: Albumin, Blood 3.9 g/dL (3.4-5.0); Albumin/Globulin Ratio 1.4 (0.8-1.8); Bilirubin, Total 0.6 mg/dL (0.1-1.0); Bun/Creatinine Ratio 10.6 (12.0-20.0); Calcium, Blood 9.1 mg/dL (8.5-10.1); Creatinine, Blood 1.13 mg/dL (0.60-1.20); Globulin, Blood 2.7 g/dL (2.2-4.0); Magnesium, Blood 1.9 mg/dL (1.6-2.4); Potassium, Blood 3.3 mmol/L (3.5-5.5); Total Protein, Blood 6.6 g/dL (6.4-8.2)
[2024-03-07 22:36] LABS: Influenza A, PCR NEGATIVE (NEGATIVE); Influenza B, PCR NEGATIVE (NEGATIVE); Resp Syncytial Virus, PCR NEGATIVE (NEGATIVE)
[2024-03-07] MEDS ORDERED: Potassium Chloride 10 Meq Tablet SA PO ONE (22:55)
[2024-03-07] MEDS ORDERED: Ketorolac Tromethamine 30mg Vial IV ONE (23:20)
[2024-03-07 23:29] LABS: Base Excess Venous 0.5 mmol/L; Bicarbonate Venous 24.5 mmol/L (24.0-30.0); PCO2 Venous 39.4 mmHg (38-42); pH Blood Venous 7.41 (7.34-7.37)
[2024-03-07] MEDS ORDERED: Acetaminophen 325 MG TABLET PO ONE (23:45)
[2024-03-07] MEDS ORDERED: Ondansetron HCl 2 MG / ML 2ML Vial IV ONE (23:45)
[2024-03-07 23:49] LABS: SARS-Cov-2 (COVID-19) PCR, MMC POSITIVE (NEGATIVE)
[2024-03-08 00:30] VITALS: BP 131/74
== END 2024-03-08 01:00 | disposition home or self-care (01) ==
LOC: ER 20:11
PROVIDERS: Student in an Organized Health Care Education/Training Program
DX: U07.1 COVID-19 (principal); R55 Syncope and collapse; I10 Essential (primary) hypertension; I48.91 Unspecified atrial fibrillation; G47.33 Obstructive sleep apnea (adult) (pediatric); K21.9 Gastro-esophageal reflux disease without esophagitis; Z79.899 Other long term (current) drug therapy; Z88.2 Allergy status to sulfonamides; Z88.8 Allergy status to other drugs, medicaments and biological substances
CPT/HCPCS: 0241U; 70450; 71260; 80053; 82803; 83735; 83880; 84484; 85025; 93005; 93010; 96361; 96374-59; 96375-59; 99285-25; A9270; J1885; J2405; J2470; J3010; J7030; Q9967

== ENCOUNTER 2025-03-15 17:06 | Inpatient (IN) | payer OTHER ==
[~2025-03-15] VITALS: Ht 188 cm; Wt 111.1 kg
[2025-03-15] MEDS ORDERED: HYDROmorphone HCl/Pf 1MG SYR ONE (17:10)
[2025-03-15] MEDS ORDERED: Metoclopramide HCl 5MG / ML 2ML Vial ONE (17:10)
[2025-03-15 17:46] LABS: BASOPHILS ABSOLUTE AUTO 0.03 K/mm3 (0.00-0.23); BASOPHILS PERCENT AUTO 0 % (0-2); EOSINOPHILS ABSOLUTE AUTO 0.18 K/mm3 (0.00-0.68); EOSINOPHILS PERCENT AUTO 2 % (0-6); Hematocrit 45.4 % (37.0-53.0); Hemoglobin 15.9 g/dL (13.5-17.5); IMMATURE GRAN ABSOLUTE AUTO 0.18 K/mm3 (0.00-0.10); IMMATURE GRAN PERCENT AUTO 2 % (0-1); LYMPHOCYTES ABSOLUTE AUTO 2.36 K/mm3 (0.84-5.20); LYMPHOCYTES PERCENT AUTO 27 % (21-46); MONOCYTES ABSOLUTE AUTO 0.50 K/mm3 (0.16-1.47); MONOCYTES PERCENT AUTO 6 % (4-13); Mean Corpuscular HGB Conc 35.0 g/dL (31.5-36.5); Mean Corpuscular Volume 89 fL (80-100); NEUTROPHILS ABSOLUTE AUTO 5.49 K/mm3 (1.96-9.15); NEUTROPHILS PERCENT AUTO 63 % (41-73); NRBC ABSOLUTE 0.00 K/mm3 (0.00-0.02); NRBC Auto 0.0 /100 WBC (0.0-0.2); Platelet Count 157 K/mm3 (150-400); RDW Coefficient Variation 12.0 % (11.7-14.2); RDW Standard Deviation 39.3 fL (35.1-46.3)
[2025-03-15] MEDS ORDERED: HYDROmorphone HCl/Pf 1MG SYR IV PRN ×2 (17:55→20:20)
[2025-03-15 17:56] LABS: Prothrombin Time Results 11.5 Sec (9.7-11.5)
[2025-03-15 18:20] LABS: Alanine Aminotransfer (ALT/SGP 37 U/L (12-78); Albumin, Blood 3.8 g/dL (3.4-5.0); Albumin/Globulin Ratio 1.4 (0.8-1.8); Anion Gap 9 mmol/L (3-11); Aspartate Aminotrans (AST/SGOT 37 U/L (12-37); Bilirubin, Total 0.6 mg/dL (0.1-1.0); Blood Urea Nitrogen 21 mg/dL (8-24); CO2, Blood 22 mmol/L (21-32); Calcium, Blood 8.9 mg/dL (8.5-10.1); Chloride, Blood 107 mmol/L (98-108); Creatinine, Blood 1.06 mg/dL (0.60-1.20); Ethanol (Alcohol), Blood, Med <3 mg/dL; Globulin, Blood 2.7 g/dL (2.2-4.0); Glucose, Blood 156 mg/dL (70-99); Potassium, Blood 3.1 mmol/L (3.5-5.5); Sodium, Blood 135 mmol/L (136-145); Total Protein, Blood 6.5 g/dL (6.4-8.2)
[2025-03-15] MEDS ORDERED: Ondansetron HCl 2 MG / ML 2ML Vial IV PRN (20:15)
[2025-03-15 20:45] LABS: U Amphetamine Screen Not Detected; U Barbituate Screen Not Detected; U Benzodiazapine Screen Not Detected; U Buprenorphine Screen Not Detected; U Cannabinoids Screen Not Detected; U Cocaine Screen Not Detected; U Methadone Screen Not Detected; U Methamphetamine Screen Not Detected; U Opiates Screen DETECTED; U Oxycodone Screen Not Detected; U Phencyclidine Screen Not Detected
[2025-03-15 22:12] VITALS: BP 151/80
--- NOTE | 2025-03-16 04:24 | NUR ---
NOC SUMMARY- PT ARRIVED TO ROOM IN DISCOMFORT. PT TRANSFERRED TO BED AND MEDICATED. PT PAIN HAS BEEN MANAGED WELL. PT IS ON CONTINOUS BIOX. PT HAS KNOWN SLEEP APNEA BUT DOES NOT USE CPAP. PT IS ON O2 VIA NC @ 3LPM. SPO2 IS MAINTAINING >90%. PT IS TOLERATING PO AND IS VOIDING. CALL LIGHT IN REACH.
[2025-03-16 04:40] VITALS: BP 152/73
[2025-03-16 05:10] LABS: BASOPHILS ABSOLUTE AUTO 0.02 K/mm3 (0.00-0.23); BASOPHILS PERCENT AUTO 0 % (0-2); EOSINOPHILS ABSOLUTE AUTO 0.08 K/mm3 (0.00-0.68); EOSINOPHILS PERCENT AUTO 1 % (0-6); Hematocrit 44.7 % (37.0-53.0); Hemoglobin 15.3 g/dL (13.5-17.5); IMMATURE GRAN ABSOLUTE AUTO 0.03 K/mm3 (0.00-0.10); IMMATURE GRAN PERCENT AUTO 0 % (0-1); LYMPHOCYTES ABSOLUTE AUTO 0.89 K/mm3 (0.84-5.20); LYMPHOCYTES PERCENT AUTO 11 % (21-46); MONOCYTES ABSOLUTE AUTO 0.61 K/mm3 (0.16-1.47); MONOCYTES PERCENT AUTO 7 % (4-13); Mean Corpuscular HGB Conc 34.2 g/dL (31.5-36.5); Mean Corpuscular Volume 90 fL (80-100); NEUTROPHILS ABSOLUTE AUTO 6.58 K/mm3 (1.96-9.15); NEUTROPHILS PERCENT AUTO 80 % (41-73); NRBC ABSOLUTE 0.00 K/mm3 (0.00-0.02); NRBC Auto 0.0 /100 WBC (0.0-0.2); Platelet Count 128 K/mm3 (150-400); RDW Coefficient Variation 12.3 % (11.7-14.2); RDW Standard Deviation 40.2 fL (35.1-46.3)
[2025-03-16 05:38] LABS: Anion Gap 7.0 mmol/L (3-11); Blood Urea Nitrogen 13.0 mg/dL (8-24); CO2, Blood 30.0 mmol/L (21-32); Calcium, Blood 8.1 mg/dL (8.5-10.1); Chloride, Blood 104.0 mmol/L (98-108); Creatinine, Blood 1.04 mg/dL (0.60-1.20); Glucose, Blood 106.0 mg/dL (70-99); Potassium, Blood 3.7 mmol/L (3.5-5.5); Sodium, Blood 137.0 mmol/L (136-145)
[2025-03-16 07:46] VITALS: BP 136/77
--- NOTE | 2025-03-16 09:00 | NUR ---
ATTEMPTED VISIT TO ASSESS PAIN MANAGEMENT. PRIMARY RN, KEYONNA REPORTS PT'S PAIN IS DIFFICULT TO MANAGE. PT HAS NOT BEEN ABLE TO REST SINCE ADMISSION D/T DISCOMFORT AND CONSTANT VISITORS TO ROOM. PT WAS LYING SUPINE APX 45 DEGREE ANGLE WITH EYES CLOSED AND SLOW SHALLOW BREATHING. THIS PC RN ASKED PRIMARY RN TO CALL ONCE PT WAS AWAKE. PC TO REMAIN AVAILABLE NEEDED.
--- NOTE | 2025-03-16 15:15 | NUR ---
PT UP TO AMBULATE ONE LOOP OF FLOOR WEARING TLSO BRACE USING WALKER ACCOMPANIED BY FAMILY/FRIENDS.
[2025-03-16 15:30] VITALS: BP 136/71
--- NOTE | 2025-03-16 18:20 | NUR ---
pt expresses concern over increasing pain and rigidity to abdomen. localizes pain to llq. Dr Myers in with pt to evaluate.
--- NOTE | 2025-03-16 18:21 | NUR ---
SHIFT SUMMARY PT WAS ABLE TO GET UP WITH TLSO BRACE AND WALKER AND AMBULATE HALLWAYS TODAY. STILL REQUIRING HIGH AMOUNTS OF PAIN MEDICATION. ATTEMPTED TO LIMIT FREQUENT VISITORS TO ALLOW PT TO REST. WILL CONTINUE TO MONITOR.
[2025-03-16 22:11] VITALS: BP 144/86
[2025-03-17 03:55] VITALS: BP 144/68
--- NOTE | 2025-03-17 04:49 | NUR ---
SHIFT SUMMARY PT IS A/OX4. SPO2 AT 93%, NOW ON 5L NC WHILE SLEEPING. ENCOURAGED I.S. USE WHILE AWAKE. REPORTS IMPROVED PAIN MANAGEMENT WITH INCREASED PO DOSAGE. NO CHANGES WITH ABD DISCOMFORT- STILL FIRM, TENDER TO TOUCH AND DISTENDED. PLAN TO DISCUSS BOWEL CARE. POOR PO INTAKE NOTED, URINE ANA M IS COLOR. ENCOURAGED PO HYDRATION. PT DENIES N/V. IS AMBULATING TO BATHROOM WITH MIN ASSIST. ABD PLACED FOR COMFORT. PT STILL VERY PAINFUL WITH REPOSITIONING OR MOVEMENT IN GENERAL. PLAN TO CONT PAIN MANAGEMENT. PT CURRENTLY RESTING IN BED WITH CALL LIGHT IN REACH, CONT BIOX IN PLACE AND RESP EVEN/UNLABORED. WILL GIVE REPORT TO ONCOMING.
[2025-03-17] MEDS ORDERED: Polyethylene Glycol 3350 17 gm PO PRN (07:20)
[2025-03-17 07:41] VITALS: BP 141/82
[2025-03-17 13:09] LABS: BASOPHILS ABSOLUTE AUTO 0.03 K/mm3 (0.00-0.23); BASOPHILS PERCENT AUTO 0 % (0-2); EOSINOPHILS ABSOLUTE AUTO 0.34 K/mm3 (0.00-0.68); EOSINOPHILS PERCENT AUTO 4 % (0-6); Hematocrit 43.0 % (37.0-53.0); Hemoglobin 15.2 g/dL (13.5-17.5); IMMATURE GRAN ABSOLUTE AUTO 0.05 K/mm3 (0.00-0.10); IMMATURE GRAN PERCENT AUTO 1 % (0-1); LYMPHOCYTES ABSOLUTE AUTO 1.42 K/mm3 (0.84-5.20); LYMPHOCYTES PERCENT AUTO 16 % (21-46); MONOCYTES ABSOLUTE AUTO 1.03 K/mm3 (0.16-1.47); MONOCYTES PERCENT AUTO 12 % (4-13); Mean Corpuscular HGB Conc 35.3 g/dL (31.5-36.5); Mean Corpuscular Volume 88 fL (80-100); NEUTROPHILS ABSOLUTE AUTO 6.01 K/mm3 (1.96-9.15); NEUTROPHILS PERCENT AUTO 68 % (41-73); NRBC ABSOLUTE 0.00 K/mm3 (0.00-0.02); NRBC Auto 0.0 /100 WBC (0.0-0.2); Platelet Count 106 K/mm3 (150-400); RDW Coefficient Variation 12.2 % (11.7-14.2); RDW Standard Deviation 39.5 fL (35.1-46.3)
--- NOTE | 2025-03-17 13:14 | NUR ---
ASSUMED CARE PT IS A/O X4 DROWSEY WITH 02 AT 5L NC, PT HAS SLEEP APNEA SO O2 DROPS TO MID 80S WHEN ASLEEP, REBOUNDING QUICKLY WHEN AWAKE. PAIN TO LOWER BACK IS 10/10 AND PT HAS BEEN MEDICATED WITH IV AND ORAL MEDS. WILL CONT MONITORING PT, PT CALLS APPROPRIATLY AND ABLE TO MAKE NEEDS KNOWN.
[2025-03-17 13:24] LABS: pH Blood Venous 7.38 (7.34-7.37)
--- NOTE | 2025-03-17 13:26 | NUR ---
PHYSICAL THERAPY PT UP WITH PHYSICAL T USING FWW WAS ABLE TO WALK AROUND UNIT WITH MINIMAL ASSIST. PT UMU WEL BUT WAS IN PAIN WHEN RETURNED, PT MEDICATED. PT ALSO C/O INCREASED ABD PAIN. MD AWARE AND CT SCAN WAS ORDERED .
[2025-03-17 13:35] LABS: Alanine Aminotransfer (ALT/SGP 57.0 U/L (12-78); Albumin, Blood 3.1 g/dL (3.4-5.0); Albumin/Globulin Ratio 0.9 (0.8-1.8); Anion Gap 6.0 mmol/L (3-11); Aspartate Aminotrans (AST/SGOT 38.0 U/L (12-37); Bilirubin, Total 1.0 mg/dL (0.1-1.0); Blood Urea Nitrogen 12.0 mg/dL (8-24); CO2, Blood 29.0 mmol/L (21-32); Calcium, Blood 7.8 mg/dL (8.5-10.1); Chloride, Blood 102.0 mmol/L (98-108); Creatinine, Blood 1.03 mg/dL (0.60-1.20); Globulin, Blood 3.3 g/dL (2.2-4.0); Glucose, Blood 112.0 mg/dL (70-99); Potassium, Blood 3.8 mmol/L (3.5-5.5); Sodium, Blood 133.0 mmol/L (136-145); Total Protein, Blood 6.4 g/dL (6.4-8.2)
[2025-03-17 14:54] VITALS: BP 140/78
--- NOTE | 2025-03-17 18:25 | NUR ---
PT CONT TO BE IN A LOT OF PAIN SCREAMING OUT WITH MOVEMENT, I ENC TO TRY TO MAKE IT TO WHEN HIS ORAL MEDICATIONS WERE DO BUT PT STATED HE WAS IN TOO MUCH PAIN. PT WAS MEDICATED, CONT TO BE ON 5L NC AND SATS IN THE LOW 90S SPOKE WITH FAMILY AND HE HAS BAD SLEEP APNEA AND DOESNT WERE MASK DUE TO ESOPHAGEAL ISSUES. DR QUEZADA INTO SEE PT AND FELT HE WAS TOO SEDATED FALLING ASLEEP IN CONVERATION SO DCED IV MEDS. I EXPLAINED THIS TO PT AND HE AGREED TO TRY TO TAKE ONLY PO MEDICATION AND WOULD WAIT. SATS REMAIN MID 90S, O2 DECREASED TO 3L NC PT HOLDING IN THE LOW 90S. CT OF ABD WAS NEGATIVE FOR ANY SERIOUS INJURY, NO BLEEDING NOTED.
--- NOTE | 2025-03-17 18:44 | NUR ---
PT RELAXED AND LAYING IN BED MINIMAL OUT PUT TODAY. PT ADMITS TO NOT EATING VERY MUCH NOR DRINKING. MD WAS CALL MULTIPLE TIMES NO MESSAGE LEFT. WILL CONT TO MONITOR.
[2025-03-17 19:50] VITALS: BP 119/75
--- NOTE | 2025-03-18 05:22 | NUR ---
SHIFT SUMMARY NO ACUTE CHANGES T/O NIGHT. PAIN MANAGED WITH PO MEDICATIONS. SP02 ABOVE 93% ON 3L. AMB TO BATHROOM. ABLE TO REPOSITION SELF. IS A/OX4 WITH VSS. IVF INFUSING PER ORDERS, URINE CONT TO BE ANA M IN COLOR. POOR PO INTAKE. PT APPEARS TO HAVE SLEPT MORE TONIGHT. IS CURRENTLY RESTING IN BED WITH EYES CLOSED AND RESP EVEN/UNLABORED. HAS CALL LIGHT IN REACH. WILL GIVE REPORT TO ONCOMING RN .
[2025-03-18 05:35] VITALS: BP 143/81
[2025-03-18 06:58] VITALS: BP 123/75
[2025-03-18] MEDS ORDERED: TADA10TA PO (08:25)
[2025-03-18] MEDS ORDERED: ROSUVASTATIN CA10 MG PO (08:27)
[2025-03-18 16:07] VITALS: BP 145/85
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
[2025-03-18 18:41] LABS: BASOPHILS ABSOLUTE AUTO 0.03 K/mm3 (0.00-0.23); BASOPHILS PERCENT AUTO 0 % (0-2); EOSINOPHILS ABSOLUTE AUTO 0.42 K/mm3 (0.00-0.68); EOSINOPHILS PERCENT AUTO 6 % (0-6); Hematocrit 40.3 % (37.0-53.0); Hemoglobin 14.0 g/dL (13.5-17.5); IMMATURE GRAN ABSOLUTE AUTO 0.03 K/mm3 (0.00-0.10); IMMATURE GRAN PERCENT AUTO 0 % (0-1); LYMPHOCYTES ABSOLUTE AUTO 0.90 K/mm3 (0.84-5.20); LYMPHOCYTES PERCENT AUTO 13 % (21-46); MONOCYTES ABSOLUTE AUTO 0.80 K/mm3 (0.16-1.47); MONOCYTES PERCENT AUTO 12 % (4-13); Mean Corpuscular HGB Conc 34.7 g/dL (31.5-36.5); Mean Corpuscular Volume 90 fL (80-100); NEUTROPHILS ABSOLUTE AUTO 4.72 K/mm3 (1.96-9.15); NEUTROPHILS PERCENT AUTO 69 % (41-73); NRBC ABSOLUTE 0.00 K/mm3 (0.00-0.02); NRBC Auto 0.0 /100 WBC (0.0-0.2); Platelet Count 116 K/mm3 (150-400); RDW Coefficient Variation 11.8 % (11.7-14.2); RDW Standard Deviation 38.5 fL (35.1-46.3)
[2025-03-18 19:11] LABS: Alanine Aminotransfer (ALT/SGP 41.0 U/L (12-78); Albumin, Blood 3.0 g/dL (3.4-5.0); Albumin/Globulin Ratio 1.0 (0.8-1.8); Anion Gap 6.0 mmol/L (3-11); Aspartate Aminotrans (AST/SGOT 29.0 U/L (12-37); Bilirubin, Total 1.1 mg/dL (0.1-1.0); Blood Urea Nitrogen 11.0 mg/dL (8-24); CO2, Blood 30.0 mmol/L (21-32); Calcium, Blood 8.3 mg/dL (8.5-10.1); Chloride, Blood 100.0 mmol/L (98-108); Creatinine, Blood 1.01 mg/dL (0.60-1.20); Globulin, Blood 2.9 g/dL (2.2-4.0); Glucose, Blood 105.0 mg/dL (70-99); Potassium, Blood 3.6 mmol/L (3.5-5.5); Sodium, Blood 132.0 mmol/L (136-145); Total Protein, Blood 5.9 g/dL (6.4-8.2)
[2025-03-18 19:19] VITALS: BP 128/78
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
--- NOTE | 2025-03-18 20:40 | NUR ---
PHONE CALL TO DR RING. PTS RN REPORTS PT VERB FEELING OF IMPENDING DOOM. PT NPO AND REQUESTING PAIN MEDS.ALSO, PTS URINE CONT DARK WITH IMPROVED OUTPUT. REVIEWED NEW ABD IMAGING COMPLETED TODAY AND REVIEWED LABS.ADVISED OF ABOVE.DR RING ORDERED LR 500 ML BOLUS, AND NPO EXCEPT PO MEDS.
[2025-03-19 00:19] VITALS: BP 119/74
[2025-03-19 04:01] VITALS: BP 116/71
--- NOTE | 2025-03-19 05:24 | NUR ---
NOC SUMMARY- PT REMAINS PAINFUL AT TIMES. PT TX PER MAR WITH SOME RELIEF. PT BIGGEST COMPLAINT HAS BEEN ABD PAIN. PT DID HAVE A SMALL BM AND LARGE AMOUNT OF FLATUS. PASSING OF GAS GAVE MOST RELIEF. PT HAS BEEN VOIDING. PT REMAINA NPO. PT IS AMBULATING TO BATHROOM. NO TELE EVENTS REPORTED. PT HAS BEEN ABLE TO SLEEP SOME THIS SHIFT. CALL LIGHT IN REACH.
[2025-03-19 07:21] VITALS: BP 146/78
[2025-03-19] MEDS ORDERED: Triamcinolone Inj Susp 40 MG / ML 1ML Vial IM ONE (09:20)
[2025-03-19] MEDS ORDERED: Ketorolac Tromethamine 30mg Vial IM ONE (10:00)
[2025-03-19] MEDS ORDERED: Ketorolac Tromethamine 30mg Vial IV ONE (12:15)
[2025-03-19 14:55] VITALS: BP 135/74
[2025-03-19 19:18] VITALS: BP 124/78
--- NOTE | 2025-03-19 20:06 | NUR ---
SHIFT SUMMARY PAIN HAS BEEN MANAGED WITH PO PAIN MEDICATION. PT AMBULATING INDEPENDENTLY IN THE HALWAYS WITH BRACE ON. PT REPORTS IMPROVED PAIN CONTROL THIS EVENING. PT IS STILL STRUGGLING WITH CONSTIPATION, ALTHOUGH HE DID HAVE A SMALL BM THIS EVENING. BEDSIDE REPORT ATTEMPTED, PT OUT OF THE ROOM AT THAT TIME.
[2025-03-19] MEDS ORDERED: Polyethylene Glycol 3350 17 gm PO SCH (21:00)
--- NOTE | 2025-03-20 01:10 | NUR ---
RN TO ROOM TO ROUND; PT SLEEPING, CALL LIGHT WITHIN REACH. CONTINUOUS PULSE OX IN PLACE.
[2025-03-20 03:34] VITALS: BP 129/75
--- NOTE | 2025-03-20 05:59 | NUR ---
SHIFT SUMMARY PT WITH EPISODE OF ABDOMINAL DISTENTION AND REQUESTED ENEMA. ENEMA GIVEN; PT REPORTS SOME RELIEF WITH FLATUS. PT MEDICATED FOR PAIN, BOWEL CARE PER EMAR. PT CONTINUOUS PULSE OX IN PLACE; PT WITH UNTREATED JANIE, OXYGEN VIA NC.
[2025-03-20 07:55] VITALS: BP 137/76
--- NOTE | 2025-03-20 09:30 | NUR ---
PT OOB AMBULATING WITH TLSO BRACE ON.
[2025-03-20] MEDS ORDERED: BISA10S PR (10:31)
[2025-03-20] MEDS ORDERED: CYCL10 PO (10:31)
[2025-03-20] MEDS ORDERED: TAMS.4ER PO (10:32)
[2025-03-20] MEDS ORDERED: MIRALAX17 GM PO (10:32)
[2025-03-20] MEDS ORDERED: OXAYDO5 M1 PO (10:32)
--- NOTE | 2025-03-20 12:40 | NUR ---
DC INSTRUCT REVIEWED WITH PT. STATED UNDERSTANDING. PRINTED INSTRUCT AND HANDWRITTEN RX OXYCODONE DISPENSED. AWAITING /FAMILY FOR RIDE HOME.
[2025-03-23 20:33] LABS: CK TOTAL 354 U/L (39-308); CK-BB 0 % (0-0); CK-MACRO TYPE I 0 % (0-0); CK-MACRO TYPE II 0 % (0-0); CK-MB 0 % (0-4); CK-MM 100 % (96-100)
== END 2025-03-20 13:53 | disposition home or self-care (01) | DRG 552 ==
LOC: ER 17:06 → SURS 17:07 → ER 20:44 → SURS 20:58
PROVIDERS: Emergency Medicine; ADMIT Family Medicine
DX: S32.020A Wedge compression fracture of second lumbar vertebra, initial encounter for closed fracture (principal); I50.32 Chronic diastolic (congestive) heart failure; E87.1 Hypo-osmolality and hyponatremia; I48.20 Chronic atrial fibrillation, unspecified; S32.030A Wedge compression fracture of third lumbar vertebra, initial encounter for closed fracture; S32.040A Wedge compression fracture of fourth lumbar vertebra, initial encounter for closed fracture; K21.9 Gastro-esophageal reflux disease without esophagitis; E78.5 Hyperlipidemia, unspecified; I11.0 Hypertensive heart disease with heart failure; G25.81 Restless legs syndrome; G47.33 Obstructive sleep apnea (adult) (pediatric); F41.9 Anxiety disorder, unspecified; F90.9 Attention-deficit hyperactivity disorder, unspecified type; K59.03 Drug induced constipation; T40.605A Adverse effect of unspecified narcotics, initial encounter; Z79.01 Long term (current) use of anticoagulants; Z88.2 Allergy status to sulfonamides; Z88.8 Allergy status to other drugs, medicaments and biological substances; Z79.899 Other long term (current) drug therapy; Z90.49 Acquired absence of other specified parts of digestive tract; Z98.52 Vasectomy status; Z98.890 Other specified postprocedural states; Z86.718 Personal history of other venous thrombosis and embolism; V89.2XXA Person injured in unspecified motor-vehicle accident, traffic, initial encounter
CPT/HCPCS: 36415; 70450; 70498; 71260; 72125; 73090; 74019; 74177; 80048; 80053; 80320; 82550; 82803; 83605; 83690; 85025; 85610; 86850; 86900; 86901; 94664; 94762; 96374-59; 96375-59; 96376; 96376-59; 97110; 97116; 97161; 97530; 99285-25; A9270; G0378; J1171; J1885; J2765; J3301; J7120; Q9967